=== PATIENT | female | born 1995 | race Caucasian/White ===

== ENCOUNTER 2021-02-02 22:04 | Emergency (ER) | payer SELFPAY ==
--- NOTE | 2021-02-03 00:37 | EDM.PDOC ---
ED HPI GENERAL MEDICAL PROBLEM - General Chief Complaint: Genitourinary Problem Stated Complaint: DIZZY/KIDNEY PAIN Time Seen by Provider: 02/03/21 00:13 Source of Information: Reports: Patient History Limitations: Reports: No Limitations - History of Present Illness INITIAL COMMENTS - FREE TEXT/NARRATIVE: Ms. Thomason is a very pleasant 25-year-old woman who now presents the ED stating that she developed a headache Wednesday night, 02/01/2021, felt from the back of her neck, extending to her eyes. This is the same type of headache that she gets once or twice a week. She developed bilateral flank pain, along with nausea and vomiting yesterday morning, 02/02/2021. She describes the flank pain is burning and crampy in character. It waxes and wanes. She has not identified any modifiers. She does not believe that she has had similar pain in the past. She then developed dysuria and possible urinary frequency around 21:00 tonight. No recent fever, however, the patient does feel chilled. She also reports having 3 days of watery, non-bloody diarrhea. The patient states that she took 600 mg of ibuprofen around 16:00 yesterday afternoon. The patient's LMP was 01/25/2021 or 01/26/2021. She is -0-0-1. Here in the ED, the patient is found to be slightly tachycardic at 106 bpm, otherwise, she is hemodynamically stable, afebrile, saturating 100% on room air. She appears to be uncomfortable and chilled, keep areas of under blankets. She is in no acute distress. The patient states that she has nausea and vomiting every morning since childhood. Other than that and the headaches that she gets 2-3 times a week, prior to Wednesday night, the patient denies having a recent fever, chills, sore throat, ear pain, nasal or sinus congestion, cough, dyspnea, chest pain, palpitations, constipation, diarrhea, abdominal pain, urinary symptoms, recent weight gain or weight loss, recent bloody bowel movements or black bowel movements, recent joint aches, or rashes. The patient does not have a PCP. She has not received a COVID vaccination. Bilateral Lower Back Pain Score (Numeric/FACES): 7 Headache Pain Score (Numeric/FACES): 5 - Related Data Allergies Allergy/AdvReac Type Severity Reaction Status Date / Time No Known Allergies Allergy Verified 02/02/21 22:19 Home Meds: Home Meds . [No Known Home Meds] 02/02/21 [History] Past Medical History Respiratory History: Reports: Asthma (suspected, not PFT-tested) Psychiatric History: Reports: Anxiety (untreated), Depression (untreated) Endocrine/Metabolic History: Reports: Obesity/BMI 30+ - Past Surgical History GI Surgical History: Reports: Appendectomy Social & Family History - Tobacco Use Tobacco Use Status *Q: Former Tobacco User Years of Tobacco use: 11 Packs/Tins Daily: 0.2 Month/Year Tobacco Last Used: Quit 2019 Tobacco Use Comment: Started smoking 2008 - Caffeine Use Caffeine Use: Reports: Soda, Tea - Alcohol Use Alcohol Use History: Yes Alcohol Use Frequency: Rarely - Recreational Drug Use Recreational Drug Use: Yes Drug Use in Last 12 Months: Yes Recreational Drug Type: Reports: Marijuana/Hashish (smokes daily) - Living Situation & Occupation Living situation: Reports: Single, with Family (Daughter), Other (with a friend) Occupation: Unemployed ED ROS GENERAL - Review of Systems Review Of Systems: Comprehensive ROS is negative, except as noted in HPI. ED EXAM, RENAL/ - Physical Exam Exam: See Below Exam Limited By: No Limitations General Appearance: Alert, WD/WN, Mild Distress (appears uncomfortable) Eye Exam: Bilateral Eye: EOMI, Normal Inspection Ears: Normal External Exam, Hearing Grossly Normal Nose: Normal Inspection Throat/Mouth: Normal Inspection, Normal Lips, Normal Voice, No Airway Compromise Head: Atraumatic, Normocephalic Neck: Normal Inspection, Full Range of Motion Respiratory/Chest: No Respiratory Distress, Lungs Clear, Normal Breath Sounds, No Accessory Muscle Use Cardiovascular: Normal Peripheral Pulses, Regular Rate, Rhythm, No Gallop, No JVD, No Murmur, No Rub GI/Abdominal: Normal Bowel Sounds, Soft, No Organomegaly, No Distention, No Abnormal Bruit, No Mass, Tender (mild, generalized, non-focal) Back Exam: Normal Inspection, Full Range of Motion, NT Extremities: Normal Inspection, Normal Range of Motion, Normal Capillary Refill Neurological: Alert, Oriented, Normal Cognition, No Motor/Sensory Deficits Psychiatric: Normal Affect Skin Exam: Warm, Dry, Intact, Normal Color, No Rash Course - Vital Signs Last Recorded V/S: Last Vital Signs Temp 37.5 C 02/02/21 22:24 Pulse 106 H 02/02/21 22:24 Resp 20 02/02/21 22:24 BP 134/89 02/02/21 22:24 Pulse Ox 100 02/02/21 22:24 - Orders/Labs/Meds Orders: Active Orders 24 hr Category Date Time Status CULTURE URINE [MREF] Stat Lab 02/03/21 00:30 Received Labs: Laboratory Tests 02/02/21 02/02/21 02/03/21 Range/Units 22:30 22:30 01:02 WBC 10.00 (3.98-10.04) K/mm3 RBC 4.71 (3.98-5.22) M/mm3 Hgb 14.6 (11.2-15.7) gm/dl Hct 42.0 (34.1-44.9) % MCV 89.2 (79.4-94.8) fl MCH 31.0 (25.6-32.2) pg MCHC 34.8 (32.2-35.5) g/dl RDW Std Deviation 40.2 (36.4-46.3) fL Plt Count 313 (182-369) K/mm3 MPV 9.7 (9.4-12.3) fl Neutrophils % (Manual) 84 H (40-60) % Band Neutrophils % 0 (0-10) % Lymphocytes % (Manual) 8 L (20-40) % Atypical Lymphs % 0 % Monocytes % (Manual) 8 (2-10) % Eosinophils % (Manual) 0 L (0.7-5.8) % Basophils % (Manual) 0 L (0.1-1.2) Platelet Estimate Adequate RBC Morph Comment Normal Sodium (136-145) mEq/L Potassium (3.5-5.1) mEq/L Chloride (98-107) mEq/L Carbon Dioxide (21-32) mEq/L Anion Gap (5-15) BUN (7-18) mg/dL Creatinine (0.55-1.02) mg/dL Est Cr Clr Drug Dosing mL/min Estimated GFR (MDRD) (>60) mL/min BUN/Creatinine Ratio (14-18) Glucose (70-99) mg/dL Calcium (8.5-10.1) mg/dL Total Bilirubin (0.2-1.0) mg/dL AST (15-37) U/L ALT (14-59) U/L Alkaline Phosphatase (46-116) U/L C-Reactive Protein (<1.0) mg/dL Total Protein (6.4-8.2) g/dl Albumin (3.4-5.0) g/dl Globulin gm/dL Albumin/Globulin Ratio (1-2) Urine Color Yellow (Yellow) Urine Appearance Clear (Clear) Urine pH 7.0 (5.0-8.0) Ur Specific [place] 1.020 (1.005-1.030) Urine Protein Negative (Negative) Urine Glucose (UA) Negative (Negative) Urine Ketones Negative (Negative) Urine Occult Blood Trace-intact H (Negative) Urine Nitrite Negative (Negative) Urine Bilirubin Negative (Negative) Urine Urobilinogen 0.2 (0.2-1.0) Ur Leukocyte Esterase 2+ H (Negative) Urine RBC 5-10 H (0-5) /hpf Urine WBC 5-10 H (0-5) /hpf Ur Squamous Epith Cells 5-10 H (0-5) /hpf Urine Bacteria Moderate H (FEW) /hpf Urine Mucus Not seen (FEW) /hpf Urine HCG, Qual Negative (NEGATIVE) 02/03/21 Range/Units 01:02 WBC (3.98-10.04) K/mm3 RBC (3.98-5.22) M/mm3 Hgb (11.2-15.7) gm/dl Hct (34.1-44.9) % MCV (79.4-94.8) fl MCH (25.6-32.2) pg MCHC (32.2-35.5) g/dl RDW Std Deviation (36.4-46.3) fL Plt Count (182-369) K/mm3 MPV (9.4-12.3) fl Neutrophils % (Manual) (40-60) % Band Neutrophils % (0-10) % Lymphocytes % (Manual) (20-40) % Atypical Lymphs % % Monocytes % (Manual) (2-10) % Eosinophils % (Manual) (0.7-5.8) % Basophils % (Manual) (0.1-1.2) Platelet Estimate RBC Morph Comment Sodium 141 (136-145) mEq/L Potassium 3.8 (3.5-5.1) mEq/L Chloride 104 (98-107) mEq/L Carbon Dioxide 23 (21-32) mEq/L Anion Gap 17.8 H (5-15) BUN 13 (7-18) mg/dL Creatinine 0.8 (0.55-1.02) mg/dL Est Cr Clr Drug Dosing 98.41 mL/min Estimated GFR (MDRD) > 60 (>60) mL/min BUN/Creatinine Ratio 16.3 (14-18) Glucose 108 H (70-99) mg/dL Calcium 8.5 (8.5-10.1) mg/dL Total Bilirubin 0.5 (0.2-1.0) mg/dL AST 28 (15-37) U/L ALT 55 (14-59) U/L Alkaline Phosphatase 52 (46-116) U/L C-Reactive Protein 0.4 (<1.0) mg/dL Total Protein 8.2 (6.4-8.2) g/dl Albumin 3.8 (3.4-5.0) g/dl Globulin 4.4 gm/dL Albumin/Globulin Ratio 0.9 L (1-2) Urine Color (Yellow) Urine Appearance (Clear) Urine pH (5.0-8.0) Ur Specific [place] (1.005-1.030) Urine Protein (Negative) Urine Glucose (UA) (Negative) Urine Ketones (Negative) Urine Occult Blood (Negative) Urine Nitrite (Negative) Urine Bilirubin (Negative) Urine Urobilinogen (0.2-1.0) Ur Leukocyte Esterase (Negative) Urine RBC (0-5) /hpf Urine WBC (0-5) /hpf Ur Squamous Epith Cells (0-5) /hpf Urine Bacteria (FEW) /hpf Urine Mucus (FEW) /hpf Urine HCG, Qual (NEGATIVE) Meds: Medications Discontinued Medications Generic Name Dose Route Start Last Admin Trade Name Freq PRN Reason Stop Dose Admin Levofloxacin/Dextrose 750 mg/ 150 mls @ 100 mls/hr 02/03/21 00:31 02/03/21 01:08 Premix IV 02/03/21 02:00 100 mls/hr ONETIME STA Administration Sodium Chloride 1,000 mls @ 999 mls/hr 02/03/21 00:31 02/03/21 01:01 Normal Saline IV 02/03/21 01:31 999 mls/hr ONETIME ONE Administration Ondansetron HCl 4 mg 02/03/21 00:31 02/03/21 01:01 Ondansetron 4 Mg/2 Ml Sdv IVPUSH 02/03/21 00:32 4 mg ONETIME ONE Administration - Re-Assessments/Exams Free Text/Narrative Re-Assessment/Exam: 02/03/21 00:32 A urinalysis was ordered at triage. It demonstrates trace occult blood with 5- 10 RBCs, 2+ leukocyte esterase with 5-10 WBCs, nitrate negative with moderate bacteria, and 5-10 squamous epithelial cells. I ordered a urine test, which is negative. Based on the above, it appears that the patient's symptoms are most likely due to early pyelonephritis. I have ordered a CBC, CMP, and CRP to further evaluate. I have ordered a urine culture. I will start the patient on levofloxacin 750 mg IVPB along with 1 L of IV fluid and 4 mg of IV Zofran. 02/03/21 01:52 The patient's CBC is unremarkable. Her CMP is remarkable for slight hyperglycemia of 108, and is otherwise unremarkable. Her CRP is within normal limits at 0.4. 02/03/21 01:56 Test results discussed with the patient. As above, the patient appears to have early pyelonephritis, but I think it would be prudent to continue to treat her with levofloxacin for 10 days, along with Zofran. Both are available via [employer], however, the patient tells me that she does not have a credit her debit card. We will see what we can do. 02/03/21 02:15 Notified to submit the Jo[facility] prescriptions, and the hospital will cover the cost. We will discharge her home. Departure - Departure Time of Disposition: 02:16 Disposition: Home, Self-Care 01 Condition: Good Clinical Impression: Pyelonephritis - Discharge Information *PRESCRIPTION DRUG MONITORING PROGRAM REVIEWED*: Not Applicable *COPY OF PRESCRIPTION DRUG MONITORING REPORT IN PATIENT EL[place]: Not Applicable Instructions: Pyelonephritis, Adult, [id number] Referrals: PCP,None [Primary Care Provider] - Forms: ED Department Discharge Additional Instructions: You were seen in the emergency room after developing a headache, followed by bilateral flank pain with nausea and vomiting, followed by uncomfortable urination last night. Work-up in the ER included several blood tests, a urinalysis, and urine test. Based on your history, physical exam, and ER tests, you are most likely suffering from early pyelonephritis = a urinary tract infection that has gone to your kidneys. You have been started on the antibiotic levofloxacin (Levaquin), and a prescription for levofloxacin, as well as for the antinausea medicine Zofran ODT, have been provided to you via [employer]. Take 1 tablet of levofloxacin every evening, starting , 02/03/2021. Finish the entire prescription unless told otherwise by a doctor. You may dissolve 1 tablet of Zofran ODT on your tongue up to every 8 hours, as needed for nausea/vomiting. Stay adequately hydrated. It does not really matter what type of fluid you drink, however, because you have had diarrhea, we recommend that you avoid juice and milk, as they may make your diarrhea worse. If any other problems, please do not hesitate to return to the ER. Sepsis Event Note (ED) - Focused Exam Vital Signs: Vital Signs Temp Pulse Resp BP Pulse Ox 02/02/21 22:24 37.5 C 106 H 20 134/89 100 - My Orders Last 24 Hours: My Active Orders 02/03/21 00:30 CULTURE URINE [MREF] Stat - Assessment/Plan Last 24 Hours: My Active Orders 02/03/21 00:30 CULTURE URINE [MREF] Stat
[2021-02-03] MEDS: Ondansetron 4 MG/2 ML SDV IVPUSH ONE (01:01)
[2021-02-03] MEDS: Sodium Chloride 0.9% 1,000 ML IV ONE (01:01)
[2021-02-03] MEDS: Levofloxacin/Dextrose 5%-Water 750 MG in Premix Bag 1 BAG IV STA (01:08)
== END 2021-02-03 02:35 | disposition home or self-care (01) ==
LOC: JD.ED 22:04
DX: N12 Tubulo-interstitial nephritis, not specified as acute or chronic (principal); E66.9 Obesity, unspecified; Z68.41 Body mass index [BMI] 40.0-44.9, adult; Z87.891 Personal history of nicotine dependence
CPT/HCPCS: 36415; 80053; 81001; 81025; 85007; 85027; 86140; 87086; 96365; 96375; 99284; J1956; J2405; J7030; 99283